=== PATIENT | female | born 1950 | race Two or more races ===

== ENCOUNTER 2023-11-11 09:04 | Inpatient (IN) | payer MEDICARE, MEDICAID ==
[~2023-11-11] VITALS: Ht 165.1 cm; Wt 93.2 kg
[2023-11-11] MEDS: cloNIDine HCL 0.1 MG TAB PO ONE (09:47)
[2023-11-11 09:48] VITALS: RESP 16; O2SAT 97
[2023-11-11 09:49] LABS: Urine Bacteria FEW /hpf (None Seen); Urine Blood Negative /uL (Negative); Urine Clarity Turbid (Clear); Urine Color Light-Yellow (Yellow); Urine Protein, UAD Negative (Negative); Urine Specific Gravity 1.015 (1.001-1.035); Urine Urobilinogen Normal (Negative); Urine WBC 6 /hpf (0 - 5)
[2023-11-11 09:57] LABS: Basophils # (auto) 0 10 ^3/uL (0-0.2); Basophils % (auto) 0.3 % (0.0-2.0); Eosinophils # (auto) 0 10 ^3/uL (0-0.8); Eosinophils % (auto) 0.4 % (0.0-7.0); Hematocrit 46.4 % (36.0-46.0); Hemoglobin 15.7 g/dL (12.2-16.2); Lymphocytes % (auto) 30.3 % (10.0-50.0); Mean Corpuscular Hemoglobin 32.5 pg (28.0-32.0); Mean Corpuscular Hgb Conc. 33.8 g/dL (32.0-36.0); Mean Corpuscular Volume 96.4 fL (80.0-100.0); Monocytes # (auto) 0.6 10 ^3/uL (0-1.3); Monocytes % (auto) 9.1 % (0.0-12.0); Neutrophils # (auto) 3.9 10 ^3/uL (1.6-8.6); Neutrophils % (auto) 59.9 % (37.0-80.0); Red Blood Cells 4.82 10^6/uL (4.0-5.20); Red Cell Distribution Width 13.2 % (11.8-14.3); White Blood Cell 6.6 10^3/uL (4.4-10.8)
[2023-11-11 10:18] LABS: Chloride 110 mmol/L (98-107); Potassium 4.5 mmol/L (3.5-5.1); Sodium 139 mmol/L (136-145)
[2023-11-11 10:19] LABS: Anion Gap 6 (5-15); Carbon Dioxide 23 mmol/L (20-30)
[2023-11-11 10:20] LABS: Calcium 11.9 mg/dL (8.5-10.1)
[2023-11-11 10:24] LABS: Glucose 95 mg/dL (74-106)
[2023-11-11 10:25] LABS: BUN/Creatinine Ratio 16.9 (10.0-20.0); Blood Urea Nitrogen 13 mg/dL (9-23)
[2023-11-11] MEDS: PIPERACILLIN-TAZOB 3.375GM 100 ML IV ONE (12:52)
[2023-11-11] MEDS: ONDANSETRON HCL 4 MG/2 ML VIAL IV ONE (12:53)
[2023-11-11] MEDS ORDERED: hydrALAZINE HCL 20 MG/ML VL IV PRN (13:00)
[2023-11-11] MEDS ORDERED: ONDANSETRON HCL 4 MG/2 ML VIAL IV PRN (13:00)
[2023-11-11] MEDS ORDERED: HYDROmorphone HCL 2 MG/ML VL/or syr IV PRN (13:00)
[2023-11-11] MEDS: SODIUM CHLORIDE 0.9% 1,000 ML IV ONE (13:01)
[2023-11-11] MEDS: MORPHINE SULFATE 4 MG/ML SYR/VIAL IV ONE (13:01)
[2023-11-11] MEDS ORDERED: PIPERACILLIN-TAZOB 3.375GM 100 ML IV ONE (13:15)
[2023-11-11] MEDS: SODIUM CHLOR 0.9% PF (SALINE LOCK) 10ML VIAL/SYR IV SCH (13:57)
[2023-11-11 14:30] VITALS: RESP 11
[2023-11-11] MEDS: LACTATED RINGER'S 1,000 ML IV ONE (16:16)
[2023-11-11] MEDS ORDERED: DOLU1TAB6 PO (19:02)
[2023-11-11] MEDS ORDERED: DICL50TA4 PO (19:02)
[2023-11-11] MEDS ORDERED: LISI10TA34 PO (19:02)
[2023-11-11] MEDS ORDERED: BUPR150T18 PO (19:02)
[2023-11-11] MEDS ORDERED: QUET1TAB11 PO (19:02)
[2023-11-11 20:00] VITALS: PULSE 63; RESP 63; O2SAT 97
[2023-11-11 21:00] VITALS: BP 118/66; PULSE 63; RESP 15; TEMP 97.3; O2SAT 97
[2023-11-11] MEDS: PIPERACILLIN-TAZOB 3.375GM 100 ML IV SCH (21:41)
[2023-11-12] VITALS (7 sets, daily range): BP systolic 112–149; BP diastolic 71–95; PULSE 61–70; RESP 15–20; TEMP 97.4–98.1; O2SAT 94–98
[2023-11-12] MEDS: HYDROcodone-ACET 5/325MG TAB PO PRN (02:14)
[2023-11-12 06:00] LABS: Basophils # (auto) 0 10 ^3/uL (0-0.2); Basophils % (auto) 0.5 % (0.0-2.0); Eosinophils # (auto) 0 10 ^3/uL (0-0.8); Eosinophils % (auto) 0.8 % (0.0-7.0); Hematocrit 41.8 % (36.0-46.0); Hemoglobin 13.8 g/dL (12.2-16.2); Lymphocytes # (auto) 1.6 10 ^3/uL (0.4-5.4); Lymphocytes % (auto) 32.5 % (10.0-50.0); Mean Corpuscular Hemoglobin 32.2 pg (28.0-32.0); Mean Corpuscular Hgb Conc. 33.1 g/dL (32.0-36.0); Mean Corpuscular Volume 97.4 fL (80.0-100.0); Monocytes # (auto) 0.5 10 ^3/uL (0-1.3); Monocytes % (auto) 10.3 % (0.0-12.0); Neutrophils # (auto) 2.7 10 ^3/uL (1.6-8.6); Neutrophils % (auto) 55.9 % (37.0-80.0); Nucleated Red Blood Cells % 0.1 %; Red Cell Distribution Width 12.9 % (11.8-14.3); White Blood Cell 4.8 10^3/uL (4.4-10.8)
[2023-11-12 06:26] LABS: Alanine Aminotransferase 24 U/L (7-40); Alkaline Phosphatase 198 U/L (46-116); Anion Gap 4 (5-15); Aspartate Aminotransferase 17 U/L (13-40); BUN/Creatinine Ratio 15.5 (10.0-20.0); Bilirubin, Total 0.6 mg/dL (0.2-1.0); Blood Urea Nitrogen 11 mg/dL (9-23); Calcium 11.4 mg/dL (8.5-10.1); Carbon Dioxide 26 mmol/L (20-30); Chloride 109 mmol/L (98-107); Glucose 86 mg/dL (74-106); Potassium 4.9 mmol/L (3.5-5.1); Sodium 139 mmol/L (136-145); Total Protein 6.4 g/dL (5.7-8.2)
[2023-11-12] MEDS: ACETAMINOPHEN 325 MG TAB PO PRN (11:06)
[2023-11-12] MEDS: FAMOTIDINE (10MG/ML) 2ML VL IV SCH (11:07)
[2023-11-13] VITALS (8 sets, daily range): BP systolic 123–187; BP diastolic 51–91; PULSE 60–109; RESP 14–20; TEMP 97.5–98.3; O2SAT 94–100
[2023-11-13] MEDS: DOCUSATE SOD 100 MG CAP PO PRN (06:14)
[2023-11-13 21:19] LABS: COVID19 ANTIGEN SOFIA FIA NEGATIVE (NEGATIVE)
[2023-11-14] VITALS (7 sets, daily range): BP systolic 140–158; BP diastolic 72–105; PULSE 73–109; RESP 17–20; TEMP 97.5–98.7; O2SAT 92–96
== END 2023-11-14 22:00 | disposition short-term general hospital (02) ==
LOC: ER 09:04 → OVERFLOW 12:54 → EAST 14:57
PROVIDERS: ADMIT Internal Medicine; ATTEND Family Medicine
DX: K80.62 Calculus of gallbladder and bile duct with acute cholecystitis without obstruction (principal); E83.52 Hypercalcemia; N39.0 Urinary tract infection, site not specified; I16.1 Hypertensive emergency; F32.A Depression, unspecified; Z87.442 Personal history of urinary calculi
CPT/HCPCS: 36415; 74176; 74181; 76705; 80048; 80053; 81001; 83605; 85025; 87040; 87426; 96361; 96365; 96366; 96375; G0378; J2405; J2543; J3490

== ENCOUNTER 2023-12-24 12:50 | Emergency (ER) | payer MEDICARE, MEDICAID ==
[~2023-12-24] VITALS: Ht 165.1 cm; Wt 87.0 kg
[~2023-12-24 12:50] MED LIST: BUPR150T18 PO; DICL50TA4 PO; DOLU1TAB6 PO; LISI10TA34 PO; QUET1TAB11 PO
[2023-12-24 14:15] VITALS: BP 104/66; PULSE 96; RESP 18; TEMP 98.7; O2SAT 95
== END 2023-12-24 15:12 | disposition home or self-care (01) ==
LOC: ER 12:50
DX: Z48.01 Encounter for change or removal of surgical wound dressing (principal)